=== PATIENT | male | born 1960 | race Caucasian/White ===

== ENCOUNTER 2016-10-30 12:57 | Emergency (ER) | payer MEDICAID ==
[~2016-10-30] VITALS: Ht 188 cm; Wt 90.9 kg
[~2016-10-30 12:57] MED LIST: CEPH-368 PO; ENAL20TA68 PO; HYDR25TA6 PO
[2016-10-30] MEDS ORDERED: DILTIAZEM 5 MG/ML, 5ML ONE ×2 (13:15→14:05)
[2016-10-30 13:24] LABS: HEMOGLOBIN 18.1 g/dL (13.7-18.0)
[2016-10-30] MEDS ORDERED: SODIUM CHLORIDE 0.9% 1,000ML IVBOLUS ONE (13:30)
[2016-10-30] MEDS ORDERED: SODIUM CHLORIDE FLUSH 10ML SYR IVF ONE (13:30)
[2016-10-30] MEDS ORDERED: DILTIAZEM 5 MG/ML, 5ML IV ONE (13:30)
[2016-10-30 13:37] LABS: ASPARTATE AMINO TRANSFERASE 29 U/L (15-37); BLOOD UREA NITROGEN 23 mg/dL (7-18)
[2016-10-30 13:43] LABS: IS PT STATUS REG ER OR PRE ER? YES
[2016-10-30] MEDS ORDERED: SODIUM CHLORIDE 0.9%, 500ML IVBOLUS ONE (14:00)
[2016-10-30] MEDS ORDERED: DILTIAZEM 5 MG/ML, 5ML IVPush ONE (14:00)
[2016-10-30] MEDS ORDERED: ENOXAPARIN 100 MG/ML SQ ONE (14:00)
[2016-10-30] MEDS ORDERED: DILTIAZEM 125 MG in SODIUM CHLORIDE 0.9% 100 ML IV PRN (14:00)
[2016-10-30 15:16] VITALS: BP 109/64
== END 2016-10-30 15:38 | disposition home or self-care (01) ==
LOC: ED 13:52 → EDIP 13:53 → UNDOADMIN 13:53 → ED 14:24
DX: I48.91 Unspecified atrial fibrillation (principal); I10 Essential (primary) hypertension; D68.59 Other primary thrombophilia
CPT/HCPCS: 36415; 71010; 80053; 83880; 84484; 85025; 85610; 85730; 93005; 96372; 96374; 99291; J1650; J7030; J7040

== ENCOUNTER 2017-05-08 08:59 | Inpatient (IN) | payer MEDICAID, OTHER ==
[~2017-05-08] VITALS: Ht 188 cm; Wt 90.0 kg
[2017-05-08] MEDS ORDERED: LISI-167 PO (09:42)
[2017-05-08] MEDS ORDERED: SODIUM CHLORIDE 0.9% 1,000ML IVBOLUS ONE (10:00)
[2017-05-08] MEDS ORDERED: SODIUM CHLORIDE FLUSH 10ML SYR IVF ONE (10:00)
[2017-05-08 10:22] LABS: ASPARTATE AMINO TRANSFERASE 33 U/L (15-37); BLOOD UREA NITROGEN 19 mg/dL (7-18)
[2017-05-08 10:26] LABS: IS PT STATUS REG ER OR PRE ER? YES
[2017-05-08 10:32] LABS: HEMATOCRIT 49.7 % (39.2-51.8); HEMOGLOBIN 17.5 g/dL (13.7-18.0); WHITE BLOOD COUNT 5.8 x10^3/uL (3.4-10)
[2017-05-08] MEDS ORDERED: OMNIPAQUE 350 MG/ML, 100ML BOTTLE ONE (11:19)
[2017-05-08 11:26] LABS: DAU SCREEN DISCLAIMER
[2017-05-08] MEDS ORDERED: ASPIRIN 325 MG TABLET PO ONE (13:00)
[2017-05-08] MEDS ORDERED: ACETAMINOPHEN 325 MG TABLET PO PRN (13:30)
[2017-05-08] MEDS ORDERED: LABETALOL 5MG/ML, 20ML IVPush PRN (13:30)
[2017-05-08 14:00] VITALS: BP 144/90
[2017-05-08 20:00] VITALS: BP 147/87
[2017-05-08] MEDS: ATORVASTATIN 80 MG TABLET PO SCH (20:12)
[2017-05-09 02:00] VITALS: BP 174/100
[2017-05-09 05:53] LABS: HEMATOCRIT 47.2 % (39.2-51.8); HEMOGLOBIN 16.6 g/dL (13.7-18.0); WHITE BLOOD COUNT 6.1 x10^3/uL (3.4-10)
[2017-05-09] MEDS ORDERED: ASPIRIN 325 MG TABLET EC PO SCH (06:00)
[2017-05-09 06:41] LABS: BLOOD UREA NITROGEN 18 mg/dL (7-18)
[2017-05-09 07:32] VITALS: BP 166/95
[2017-05-09] MEDS ORDERED: GADOBUTROL 10 MMOL/10 ML PFS ONE (10:14)
[2017-05-09] MEDS: HEPARIN 5,000 UNITS/ML, 1ML SQ SCH ×2 (11:54→20:13)
[2017-05-09 15:24] VITALS: BP 148/81
[2017-05-09] MEDS ORDERED: ASPIRIN 81 MG TABLET EC PO ONE (16:00)
[2017-05-09 19:24] VITALS: BP 163/93
[2017-05-09] MEDS: ATORVASTATIN 80 MG TABLET PO SCH (20:13)
[2017-05-10 02:14] VITALS: BP 164/94
[2017-05-10] MEDS: HEPARIN 5,000 UNITS/ML, 1ML SQ SCH ×3 (03:59→20:28)
[2017-05-10] MEDS: ASPIRIN 81 MG TABLET EC PO SCH (06:08)
[2017-05-10 06:41] LABS: BLOOD UREA NITROGEN 18 mg/dL (7-18)
[2017-05-10 07:11] VITALS: BP 187/114
[2017-05-10] MEDS: LISINOPRIL 10 MG TABLET PO SCH (09:35)
[2017-05-10 11:13] VITALS: BP 162/90
[2017-05-10 13:24] VITALS: BP 118/72
[2017-05-10 20:21] VITALS: BP 166/90
[2017-05-10] MEDS: ATORVASTATIN 80 MG TABLET PO SCH (20:28)
[2017-05-11 01:36] VITALS: BP 185/101
[2017-05-11] MEDS ORDERED: hydrALAzine 20 MG/ML, 1ML IV PRN (03:30)
[2017-05-11 04:45] VITALS: BP 173/114
[2017-05-11] MEDS: HEPARIN 5,000 UNITS/ML, 1ML SQ SCH ×2 (04:49→12:30)
[2017-05-11] MEDS: ASPIRIN 81 MG TABLET EC PO SCH (04:50)
[2017-05-11 06:31] LABS: BLOOD UREA NITROGEN 15 mg/dL (7-18)
[2017-05-11 08:22] VITALS: BP 145/84
[2017-05-11 08:23] VITALS: BP 176/112
[2017-05-11] MEDS: LISINOPRIL 10 MG TABLET PO SCH (08:30)
[2017-05-11 10:48] VITALS: BP 135/83
[2017-05-11] MEDS ORDERED: ASPI-621 PO (12:19)
[2017-05-11] MEDS ORDERED: LISI-167 PO (12:19)
[2017-05-11] MEDS ORDERED: ATOR-2 PO (12:19)
[2017-05-11] MEDS ORDERED: METO25TA35 PO (12:19)
== END 2017-05-11 14:20 | disposition home or self-care (01) | DRG 948 ==
LOC: ED 11:19 → EDIP 12:16 → 4EST 13:46 → DCLOUNGE 05-11 14:00
PROVIDERS: ADMIT Hospitalist; ATTEND Family Medicine
DX: R53.1 Weakness (principal); G93.89 Other specified disorders of brain; D75.89 Other specified diseases of blood and blood-forming organs; E78.5 Hyperlipidemia, unspecified; I10 Essential (primary) hypertension; R71.8 Other abnormality of red blood cells; F17.210 Nicotine dependence, cigarettes, uncomplicated; F12.90 Cannabis use, unspecified, uncomplicated; F10.10 Alcohol abuse, uncomplicated; Z71.41 Alcohol abuse counseling and surveillance of alcoholic; Z79.82 Long term (current) use of aspirin; Z79.899 Other long term (current) drug therapy; Z87.828 Personal history of other (healed) physical injury and trauma; Z86.73 Personal history of transient ischemic attack (TIA), and cerebral infarction without residual deficits
CPT/HCPCS: 36415; 70450; 70496; 70498; 70553; 71010; 80048; 80053; 80061; 80307; 81003; 82607; 82746; 82962; 83036; 83735; 84443; 84484; 85025; 85610; 85730; 93005; 93306; A9585; J1644; Q9967; G0479; J0360; J7030

== ENCOUNTER 2017-10-17 15:47 | Inpatient (IN) | payer MEDICAID, OTHER ==
[~2017-10-17] VITALS: Ht 188 cm; Wt 80.7 kg
[~2017-10-17 15:47] MED LIST changes: +ASPI-621 PO; +ATOR-2 PO; +LISI-167 PO; +METO25TA35 PO
[2017-10-17 16:28] LABS: BASOPHILS # (AUTO) 0.03 x10^3/uL (0-0.1); BASOPHILS % (AUTO) 0 % (0-1); EOSINOPHILS # (AUTO) 0.04 x10^3/uL (0-0.4); EOSINOPHILS % (AUTO) 1 % (1-7); LYMPHOCYTES # (AUTO) 0.98 x10^3/uL (1-3.4); LYMPHOCYTES % (AUTO) 12 % (22-44); MD NO; MEAN CORPUSCULAR HEMOGLOBIN 34.4 pg (27.5-34.5); MEAN CORPUSCULAR VOLUME 98.5 fL (81-97); MEAN PLATELET VOLUME 7.6 fL (7.4-10.4); MONOCYTES # (AUTO) 0.89 x10^3/uL (0.2-0.8); MONOCYTES % (AUTO) 11 % (2-9); NEUTROPHILS # (AUTO) 6.33 x10^3/uL (1.8-6.8); NEUTROPHILS % (AUTO) 77 % (42-75); PLATELET COUNT 226 x10^3/uL (130-400); RED BLOOD COUNT 4.24 x10^6/uL (4.38-5.82); RED CELL DISTRIBUTION WIDTH 12.4 % (9.4-14.8)
[2017-10-17 16:39] LABS: ALBUMIN 3.3 g/dL (3.4-5.0); ANION GAP 4 mmol/L (5-15); CALCIUM 8.6 mg/dL (8.5-10.1); CHLORIDE 99 mmol/L (98-107)
[2017-10-17 16:40] LABS: CREATININE 1.04 mg/dL (0.7-1.3)
[2017-10-17] MEDS ORDERED: SODIUM CHLORIDE 0.9% 1,000 ML IV ONE (18:08)
[2017-10-17] MEDS ORDERED: AMPICILLIN/SULBACTAM 3 GM in SODIUM CHLORIDE 0.9% 100 ML IV ONE (18:30)
[2017-10-17] MEDS ORDERED: SODIUM CHLORIDE FLUSH 10ML SYR IVF ONE (18:30)
[2017-10-17] MEDS ORDERED: SODIUM CHLORIDE FLUSH 10ML SYR IVF PRN (19:00)
[2017-10-17 19:10] LABS: HEMOGLOBIN A1C 4.9 % (4.2-6.3)
[2017-10-17] MEDS ORDERED: morphine SULFATE 10 MG/ML, 1ML IVPush PRN (20:00)
[2017-10-17] MEDS ORDERED: VANCOMYCIN PER PHARMACY MC PRN (20:00)
[2017-10-17] MEDS ORDERED: hydrALAzine 20 MG/ML, 1ML IVPush PRN (20:00)
[2017-10-17] MEDS ORDERED: VANCOMYCIN PMX 1GM/200ML 200 ML IV ONE (20:00)
[2017-10-17] MEDS ORDERED: ENALAPRILAT 1.25 MG/ML, 2ML IVPush PRN (20:00)
[2017-10-17] MEDS ORDERED: BISACODYL 10 MG SUPP PR PRN (20:00)
[2017-10-17] MEDS ORDERED: POLYETHYLENE GLYCOL 17 GM PACKET PO PRN (20:00)
[2017-10-17] MEDS ORDERED: ONDANSETRON 2MG/ML, 2ML IVPush PRN (20:00)
[2017-10-17] MEDS ORDERED: POTASSIUM CHLORIDE 20 MEQ TAB.ER.PRT PO ONE (20:00)
[2017-10-17 20:30] LABS: HCT (SEDRATE) 38.7 % (39.2-51.8)
[2017-10-17 20:45] LABS: C-REACTIVE PROTEIN, QUANT 0.56 mg/dL (0.02-0.49); FREE T4 (FREE THYROXINE) 1.21 ng/dL (0.76-1.46); THYROID STIMULATING HORMONE 0.506 mIU/L (0.358-3.740)
[2017-10-17 20:59] VITALS: BP 154/83
[2017-10-17 21:01] LABS: HEMOGLOBIN A1C 4.8 % (4.2-6.3)
[2017-10-17] MEDS ORDERED: PHARMACOKINETIC MONITORING MC PRN (22:00)
[2017-10-17] MEDS ORDERED: PHARMACOKINETIC CONSULTATION MC ONE (22:00)
[2017-10-17 22:19] LABS: MICROSCOPIC NOT IND
[2017-10-17 22:23] VITALS: BP 158/83
[2017-10-17 22:26] LABS: CULTURE INDICATED? NO
[2017-10-17] MEDS: NICOTINE 7 MG/24 HR PATCH.TD24 TD SCH (22:27)
[2017-10-17] MEDS: ATORVASTATIN 80 MG TABLET PO SCH (22:27)
[2017-10-17] MEDS: METOPROLOL TARTRATE 25 MG TABLET PO SCH (22:28)
[2017-10-17] MEDS: SODIUM CHLORIDE 0.9% 1,000 ML IV SCH (22:29)
[2017-10-17] MEDS: HEPARIN 5,000 UNITS/ML, 1ML SQ SCH (22:29)
[2017-10-17] MEDS: VANCOMYCIN 1,600 MG in SODIUM CHLORIDE 0.9% 250 ML IV SCH (22:29)
[2017-10-17] MEDS: LISINOPRIL 10 MG TABLET PO SCH (22:29)
[2017-10-18] MEDS: AMPICILLIN/SULBACTAM 3 GM in SODIUM CHLORIDE 0.9% 100 ML IV SCH ×4 (00:24→21:06)
[2017-10-18 02:08] VITALS: BP 108/70
[2017-10-18] MEDS: ACETAMINOPHEN 325 MG TABLET PO PRN ×2 (02:10→10:18)
[2017-10-18] MEDS: OXYcodone IR 5MG TABLET PO PRN ×2 (02:22→21:07)
[2017-10-18 02:25] VITALS: BP 157/70
[2017-10-18 05:31] LABS: CALCIUM 7.8 mg/dL (8.5-10.1); CHLORIDE 103 mmol/L (98-107)
[2017-10-18 05:37] LABS: ALANINE AMINOTRANSFERASE 46 U/L (12-78); ALBUMIN 2.5 g/dL (3.4-5.0); ALKALINE PHOSPHATASE 60 U/L (45-117); ANION GAP 8 mmol/L (5-15); BASOPHILS # (AUTO) 0.02 x10^3/uL (0-0.1); BASOPHILS % (AUTO) 0 % (0-1); BILIRUBIN,TOTAL 1.5 mg/dL (0.2-1.0); CHOLESTEROL, TOTAL 53 mg/dL (140-239); EOSINOPHILS # (AUTO) 0.02 x10^3/uL (0-0.4); EOSINOPHILS % (AUTO) 0 % (1-7); HDL CHOLESTEROL (DIRECT) 24 mg/dL (40-60); LYMPHOCYTES # (AUTO) 0.89 x10^3/uL (1-3.4); LYMPHOCYTES % (AUTO) 11 % (22-44); MD NO; MEAN PLATELET VOLUME 7.7 fL (7.4-10.4); MONOCYTES # (AUTO) 0.76 x10^3/uL (0.2-0.8); MONOCYTES % (AUTO) 9 % (2-9); NEUTROPHILS # (AUTO) 6.61 x10^3/uL (1.8-6.8); NEUTROPHILS % (AUTO) 80 % (42-75); PLATELET COUNT 182 x10^3/uL (130-400); RED BLOOD COUNT 3.59 x10^6/uL (4.38-5.82); RED CELL DISTRIBUTION WIDTH 12.2 % (9.4-14.8); TOTAL PROTEIN 5.9 g/dL (6.4-8.2); TRIGLYCERIDES 79 mg/dL (50-200); VLDL CHOLESTEROL 16 mg/dL (0-25)
[2017-10-18 05:38] LABS: CHOL/HDL RATIO 2.2; HDL CHOL % 45 % (26-37); LDL CHOLESTEROL,CALCULATED 13 mg/dL (54-169); LDL/HDL RATIO 0.5 (0.5-3.0)
[2017-10-18] MEDS: SODIUM CHLORIDE 0.9% 1,000 ML IV SCH (06:35)
[2017-10-18] MEDS: HEPARIN 5,000 UNITS/ML, 1ML SQ SCH ×3 (06:35→21:08)
[2017-10-18 07:22] VITALS: BP 114/72
[2017-10-18] MEDS: ASPIRIN 81 MG TABLET EC PO SCH (08:00)
[2017-10-18] MEDS: SENNA/DOCUSATE TABLET PO SCH (09:00)
[2017-10-18] MEDS: LISINOPRIL 10 MG TABLET PO SCH ×2 (10:18→21:07)
[2017-10-18] MEDS: METOPROLOL TARTRATE 25 MG TABLET PO SCH ×2 (10:18→21:07)
[2017-10-18] MEDS ORDERED: GADOBUTROL 7.5 MMOL/7.5 ML PFS ONE (10:45)
[2017-10-18] MEDS: VANCOMYCIN 1,600 MG in SODIUM CHLORIDE 0.9% 250 ML IV SCH (12:21)
[2017-10-18 13:43] VITALS: BP 98/60
[2017-10-18] MEDS ORDERED: POTASSIUM CHLORIDE 20 MEQ TAB.ER.PRT PO ONE (15:30)
[2017-10-18 19:21] VITALS: BP 135/83
[2017-10-18] MEDS: NICOTINE 7 MG/24 HR PATCH.TD24 TD SCH (21:00)
[2017-10-18] MEDS: ATORVASTATIN 80 MG TABLET PO SCH (21:07)
[2017-10-19] MEDS: VANCOMYCIN 1,600 MG in SODIUM CHLORIDE 0.9% 250 ML IV SCH ×2 (00:44→12:28)
[2017-10-19 03:15] VITALS: BP 163/92
[2017-10-19] MEDS: AMPICILLIN/SULBACTAM 3 GM in SODIUM CHLORIDE 0.9% 100 ML IV SCH ×4 (03:22→20:56)
[2017-10-19] MEDS: HEPARIN 5,000 UNITS/ML, 1ML SQ SCH (04:46)
[2017-10-19 06:15] LABS: CHLORIDE 105 mmol/L (98-107)
[2017-10-19 06:21] LABS: ANION GAP 5 mmol/L (5-15); CALCIUM 7.7 mg/dL (8.5-10.1)
[2017-10-19 06:49] VITALS: BP 146/80
[2017-10-19] MEDS: SENNA/DOCUSATE TABLET PO SCH (09:00)
[2017-10-19] MEDS: ASPIRIN 81 MG TABLET EC PO SCH (09:01)
[2017-10-19] MEDS: METOPROLOL TARTRATE 25 MG TABLET PO SCH ×2 (09:02→21:00)
[2017-10-19] MEDS: LISINOPRIL 10 MG TABLET PO SCH ×2 (09:03→21:00)
[2017-10-19 15:25] VITALS: BP 115/69
[2017-10-19] MEDS ORDERED: ONDANSETRON 2MG/ML, 2ML IVPush PRN (16:00)
[2017-10-19] MEDS ORDERED: LABETALOL 5MG/ML, 20ML IV PRN (16:00)
[2017-10-19] MEDS ORDERED: OXYcodone 5 MG/5 ML ORAL.SOL UDC PO PRN (16:00)
[2017-10-19] MEDS ORDERED: ACETAMINOPHEN 325 MG TABLET PO PRN (16:00)
[2017-10-19] MEDS ORDERED: PROMETHAZINE 12.5 MG SUPP PR PRN (16:00)
[2017-10-19] MEDS ORDERED: MIDAZOLAM 1 MG/ML, 2ML ONE (16:00)
[2017-10-19] MEDS ORDERED: hydrALAzine 20 MG/ML, 1ML IV PRN (16:00)
[2017-10-19] MEDS ORDERED: MEPERIDINE/PF 25MG/0.5ML IVPush PRN (16:00)
[2017-10-19] MEDS ORDERED: FENTANYL PF 100 MCG/2ML IV PRN (16:00)
[2017-10-19] MEDS ORDERED: morphine SULFATE 10 MG/ML, 1ML IV PRN (16:00)
[2017-10-19] MEDS ORDERED: PROMETHAZINE 25 MG/ML, 1ML IV PRN (16:00)
[2017-10-19] MEDS ORDERED: FENTANYL PF 250 MCG/5ML ONE (16:00)
[2017-10-19] MEDS ORDERED: HYDROmorphone 1 MG/ML, 1ML IV PRN (16:00)
[2017-10-19] MEDS ORDERED: PROPOFOL 10 MG/ML, 20ML ONE (16:01)
[2017-10-19] MEDS ORDERED: PHENYLEPHRINE 10 MG/ML ONE (16:25)
[2017-10-19] MEDS ORDERED: ACETAMINOPHEN 650 MG/20.3 ML UDC ONE (17:19)
[2017-10-19] MEDS ORDERED: OXYcodone 5 MG/5 ML ORAL.SOL UDC ONE (17:19)
[2017-10-19 20:17] VITALS: BP 92/59
[2017-10-19] MEDS: ATORVASTATIN 80 MG TABLET PO SCH (20:55)
[2017-10-19] MEDS: NICOTINE 7 MG/24 HR PATCH.TD24 TD SCH (21:00)
[2017-10-20] MEDS: VANCOMYCIN 1,600 MG in SODIUM CHLORIDE 0.9% 250 ML IV SCH ×2 (00:40→12:40)
[2017-10-20] MEDS: OXYcodone IR 5MG TABLET PO PRN ×2 (00:41→21:16)
[2017-10-20 01:50] VITALS: BP 105/66
[2017-10-20] MEDS: AMPICILLIN/SULBACTAM 3 GM in SODIUM CHLORIDE 0.9% 100 ML IV SCH ×4 (03:35→21:15)
[2017-10-20 08:30] VITALS: BP 129/78
[2017-10-20] MEDS: SENNA/DOCUSATE TABLET PO SCH (09:00)
[2017-10-20] MEDS: LISINOPRIL 10 MG TABLET PO SCH ×2 (09:28→21:16)
[2017-10-20] MEDS: METOPROLOL TARTRATE 25 MG TABLET PO SCH ×2 (09:28→21:16)
[2017-10-20] MEDS: ASPIRIN 81 MG TABLET EC PO SCH (09:29)
[2017-10-20] MEDS: GABAPENTIN 100 MG CAPSULE PO SCH ×3 (12:41→21:16)
[2017-10-20] MEDS: MULTIVITAMINS/MINERALS TABLET PO SCH (12:41)
[2017-10-20 14:45] VITALS: BP 123/62
[2017-10-20] MEDS: NICOTINE 7 MG/24 HR PATCH.TD24 TD SCH (18:12)
[2017-10-20 20:00] VITALS: BP 150/82
[2017-10-20] MEDS: ATORVASTATIN 80 MG TABLET PO SCH (21:16)
[2017-10-21 02:00] VITALS: BP 118/68
[2017-10-21] MEDS: AMPICILLIN/SULBACTAM 3 GM in SODIUM CHLORIDE 0.9% 100 ML IV SCH ×4 (03:20→21:37)
[2017-10-21 05:32] LABS: CHLORIDE 108 mmol/L (98-107)
[2017-10-21 05:33] LABS: BASOPHILS # (AUTO) 0.03 x10^3/uL (0-0.1); BASOPHILS % (AUTO) 1 % (0-1); EOSINOPHILS # (AUTO) 0.16 x10^3/uL (0-0.4); EOSINOPHILS % (AUTO) 3 % (1-7); LYMPHOCYTES # (AUTO) 1.55 x10^3/uL (1-3.4); LYMPHOCYTES % (AUTO) 31 % (22-44); MD NO; MEAN CORPUSCULAR HEMOGLOBIN 34.4 pg (27.5-34.5); MEAN CORPUSCULAR HGB CONC 34.9 g/dL (33.2-36.2); MEAN CORPUSCULAR VOLUME 98.5 fL (81-97); MEAN PLATELET VOLUME 7.5 fL (7.4-10.4); MONOCYTES # (AUTO) 0.49 x10^3/uL (0.2-0.8); MONOCYTES % (AUTO) 10 % (2-9); NEUTROPHILS # (AUTO) 2.85 x10^3/uL (1.8-6.8); NEUTROPHILS % (AUTO) 56 % (42-75); PLATELET COUNT 229 x10^3/uL (130-400); RED BLOOD COUNT 3.59 x10^6/uL (4.38-5.82); RED CELL DISTRIBUTION WIDTH 12.5 % (9.4-14.8)
[2017-10-21 05:41] LABS: ALANINE AMINOTRANSFERASE 62 U/L (12-78); ALBUMIN 2.5 g/dL (3.4-5.0); ALKALINE PHOSPHATASE 80 U/L (45-117); ANION GAP 6 mmol/L (5-15); BILIRUBIN,TOTAL 0.8 mg/dL (0.2-1.0); CALCIUM 7.9 mg/dL (8.5-10.1); CREATININE 0.73 mg/dL (0.7-1.3); TOTAL PROTEIN 6.5 g/dL (6.4-8.2)
[2017-10-21 08:30] VITALS: BP 134/75
[2017-10-21] MEDS: GABAPENTIN 100 MG CAPSULE PO SCH ×3 (09:01→21:38)
[2017-10-21] MEDS: MULTIVITAMINS/MINERALS TABLET PO SCH (09:02)
[2017-10-21] MEDS: ASPIRIN 81 MG TABLET EC PO SCH (09:02)
[2017-10-21] MEDS: METOPROLOL TARTRATE 25 MG TABLET PO SCH ×2 (09:02→21:38)
[2017-10-21] MEDS: SENNA/DOCUSATE TABLET PO SCH (09:05)
[2017-10-21] MEDS: LISINOPRIL 10 MG TABLET PO SCH ×2 (09:05→21:38)
[2017-10-21] MEDS: VANCOMYCIN 1,600 MG in SODIUM CHLORIDE 0.9% 250 ML IV SCH ×2 (12:52)
[2017-10-21 14:30] VITALS: BP 128/66
[2017-10-21 19:09] VITALS: BP 117/68
[2017-10-21] MEDS ORDERED: OXYcodone IR 5MG TABLET PO PRN (20:00)
[2017-10-21] MEDS: ATORVASTATIN 80 MG TABLET PO SCH (21:37)
[2017-10-21] MEDS: NICOTINE 7 MG/24 HR PATCH.TD24 TD SCH (21:37)
[2017-10-22] MEDS ORDERED: VANCOMYCIN 1,800 MG in SODIUM CHLORIDE 0.9% 250 ML IV SCH (01:00)
[2017-10-22 02:19] VITALS: BP 112/63
[2017-10-22] MEDS: AMPICILLIN/SULBACTAM 3 GM in SODIUM CHLORIDE 0.9% 100 ML IV SCH ×4 (03:08→20:48)
[2017-10-22 08:29] VITALS: BP 122/78
[2017-10-22] MEDS: LISINOPRIL 10 MG TABLET PO SCH ×2 (09:25→20:48)
[2017-10-22] MEDS: SENNA/DOCUSATE TABLET PO SCH (09:26)
[2017-10-22] MEDS: MULTIVITAMINS/MINERALS TABLET PO SCH (09:26)
[2017-10-22] MEDS: GABAPENTIN 100 MG CAPSULE PO SCH ×3 (09:26→20:48)
[2017-10-22] MEDS: METOPROLOL TARTRATE 25 MG TABLET PO SCH ×2 (09:26→20:48)
[2017-10-22] MEDS: ASPIRIN 81 MG TABLET EC PO SCH (09:26)
[2017-10-22 14:12] VITALS: BP 112/68
[2017-10-22] MEDS ORDERED: OXYcodone IR 5MG TABLET PO PRN (14:30)
[2017-10-22 16:42] LABS: THYROID STIMULATING HORMONE 0.932 mIU/L (0.358-3.740)
[2017-10-22 18:58] VITALS: BP 120/70
[2017-10-22] MEDS: NICOTINE 7 MG/24 HR PATCH.TD24 TD SCH (20:46)
[2017-10-22] MEDS: ATORVASTATIN 80 MG TABLET PO SCH (20:48)
[2017-10-23 01:03] VITALS: BP 108/67
[2017-10-23] MEDS: AMPICILLIN/SULBACTAM 3 GM in SODIUM CHLORIDE 0.9% 100 ML IV SCH ×4 (02:58→21:10)
[2017-10-23 05:06] LABS: BASOPHILS # (AUTO) 0.04 x10^3/uL (0-0.1); BASOPHILS % (AUTO) 1 % (0-1); EOSINOPHILS # (AUTO) 0.16 x10^3/uL (0-0.4); EOSINOPHILS % (AUTO) 2 % (1-7); LYMPHOCYTES # (AUTO) 1.78 x10^3/uL (1-3.4); LYMPHOCYTES % (AUTO) 25 % (22-44); MD NO; MEAN CORPUSCULAR HGB CONC 34.5 g/dL (33.2-36.2); MEAN CORPUSCULAR VOLUME 98.7 fL (81-97); MEAN PLATELET VOLUME 7.3 fL (7.4-10.4); MONOCYTES # (AUTO) 0.64 x10^3/uL (0.2-0.8); MONOCYTES % (AUTO) 9 % (2-9); NEUTROPHILS # (AUTO) 4.51 x10^3/uL (1.8-6.8); NEUTROPHILS % (AUTO) 63 % (42-75); PLATELET COUNT 254 x10^3/uL (130-400); RED BLOOD COUNT 3.63 x10^6/uL (4.38-5.82); RED CELL DISTRIBUTION WIDTH 12.6 % (9.4-14.8)
[2017-10-23 05:13] LABS: ALBUMIN 2.6 g/dL (3.4-5.0); ANION GAP 4 mmol/L (5-15); CALCIUM 7.9 mg/dL (8.5-10.1); CHLORIDE 109 mmol/L (98-107)
[2017-10-23 05:17] LABS: CHOL/HDL RATIO 2.5; CHOLESTEROL, TOTAL 63 mg/dL (140-239); CREATININE 0.79 mg/dL (0.7-1.3); HDL CHOL % 40 % (26-37); HDL CHOLESTEROL (DIRECT) 25 mg/dL (40-60); LDL CHOLESTEROL,CALCULATED 14 mg/dL (54-169); LDL/HDL RATIO 0.6 (0.5-3.0); TRIGLYCERIDES 121 mg/dL (50-200); VLDL CHOLESTEROL 24 mg/dL (0-25)
[2017-10-23 07:59] VITALS: BP 108/72
[2017-10-23] MEDS: ASPIRIN 81 MG TABLET EC PO SCH (08:11)
[2017-10-23] MEDS: LISINOPRIL 10 MG TABLET PO SCH ×2 (08:11→21:11)
[2017-10-23] MEDS: GABAPENTIN 100 MG CAPSULE PO SCH ×3 (08:11→21:10)
[2017-10-23] MEDS: METOPROLOL TARTRATE 25 MG TABLET PO SCH ×2 (08:11→21:11)
[2017-10-23] MEDS: MULTIVITAMINS/MINERALS TABLET PO SCH (08:11)
[2017-10-23] MEDS: SENNA/DOCUSATE TABLET PO SCH (08:17)
[2017-10-23] MEDS: LINEZOLID PMX 600MG/300ML 300 ML IV SCH (11:46)
[2017-10-23 13:21] VITALS: BP 148/77
[2017-10-23 19:19] VITALS: BP 134/82
[2017-10-23] MEDS: ATORVASTATIN 80 MG TABLET PO SCH (21:10)
[2017-10-23] MEDS: NICOTINE 7 MG/24 HR PATCH.TD24 TD SCH (21:11)
[2017-10-24] MEDS: LINEZOLID PMX 600MG/300ML 300 ML IV SCH ×2 (00:16→12:23)
[2017-10-24 01:51] VITALS: BP 120/72
[2017-10-24] MEDS: AMPICILLIN/SULBACTAM 3 GM in SODIUM CHLORIDE 0.9% 100 ML IV SCH ×3 (03:30→15:00)
[2017-10-24 07:10] VITALS: BP 117/74
[2017-10-24 08:00] VITALS: BP 134/81
[2017-10-24] MEDS: SENNA/DOCUSATE TABLET PO SCH (09:00)
[2017-10-24] MEDS: MULTIVITAMINS/MINERALS TABLET PO SCH (09:49)
[2017-10-24] MEDS: METOPROLOL TARTRATE 25 MG TABLET PO SCH ×2 (09:50→20:49)
[2017-10-24] MEDS: ASPIRIN 81 MG TABLET EC PO SCH (09:52)
[2017-10-24] MEDS: GABAPENTIN 100 MG CAPSULE PO SCH ×3 (09:54→20:49)
[2017-10-24] MEDS: LISINOPRIL 10 MG TABLET PO SCH ×2 (09:55→20:48)
[2017-10-24 14:56] VITALS: BP 121/74
[2017-10-24] MEDS ORDERED: ERTAPENEM 1 GM in SODIUM CHLORIDE 0.9% 50 ML IV SCH (17:00)
[2017-10-24] MEDS: ERTAPENEM 1 GM in SODIUM CHLORIDE 0.9% 100 ML IV SCH (17:14)
[2017-10-24 19:42] VITALS: BP 120/73
[2017-10-24] MEDS: ATORVASTATIN 80 MG TABLET PO SCH (20:48)
[2017-10-24] MEDS: NICOTINE 7 MG/24 HR PATCH.TD24 TD SCH (20:49)
[2017-10-25 02:30] VITALS: BP 117/74
[2017-10-25 07:17] VITALS: BP 108/75
[2017-10-25] MEDS: SENNA/DOCUSATE TABLET PO SCH (09:00)
[2017-10-25] MEDS: ASPIRIN 81 MG TABLET EC PO SCH (10:31)
[2017-10-25] MEDS: LISINOPRIL 10 MG TABLET PO SCH ×2 (10:31→19:47)
[2017-10-25] MEDS: METOPROLOL TARTRATE 25 MG TABLET PO SCH ×2 (10:31→19:48)
[2017-10-25] MEDS: GABAPENTIN 100 MG CAPSULE PO SCH ×3 (10:31→19:47)
[2017-10-25] MEDS: MULTIVITAMINS/MINERALS TABLET PO SCH (10:31)
[2017-10-25 13:51] VITALS: BP 114/64
[2017-10-25] MEDS: ATORVASTATIN 80 MG TABLET PO SCH (19:47)
[2017-10-25] MEDS: NICOTINE 7 MG/24 HR PATCH.TD24 TD SCH (19:48)
[2017-10-25] MEDS: ERTAPENEM 1 GM in SODIUM CHLORIDE 0.9% 100 ML IV SCH (19:48)
[2017-10-25 20:39] VITALS: BP 107/69
[2017-10-25] MEDS ORDERED: ONDANSETRON 2MG/ML, 2ML IVPush PRN (22:20)
[2017-10-25] MEDS ORDERED: ONDANSETRON ODT 4 MG PO PRN (22:30)
[2017-10-26 02:31] VITALS: BP 108/71
[2017-10-26 06:05] LABS: BASOPHILS # (AUTO) 0.04 x10^3/uL (0-0.1); BASOPHILS % (AUTO) 1 % (0-1); EOSINOPHILS # (AUTO) 0.14 x10^3/uL (0-0.4); EOSINOPHILS % (AUTO) 2 % (1-7); LYMPHOCYTES # (AUTO) 2.16 x10^3/uL (1-3.4); LYMPHOCYTES % (AUTO) 27 % (22-44); MD NO; MEAN CORPUSCULAR HEMOGLOBIN 34.4 pg (27.5-34.5); MEAN CORPUSCULAR HGB CONC 34.7 g/dL (33.2-36.2); MEAN CORPUSCULAR VOLUME 99.1 fL (81-97); MEAN PLATELET VOLUME 7.5 fL (7.4-10.4); MONOCYTES # (AUTO) 0.65 x10^3/uL (0.2-0.8); MONOCYTES % (AUTO) 8 % (2-9); NEUTROPHILS # (AUTO) 4.99 x10^3/uL (1.8-6.8); NEUTROPHILS % (AUTO) 63 % (42-75); PLATELET COUNT 296 x10^3/uL (130-400); RED BLOOD COUNT 3.93 x10^6/uL (4.38-5.82); RED CELL DISTRIBUTION WIDTH 13.2 % (9.4-14.8)
[2017-10-26 06:13] LABS: ALBUMIN 2.9 g/dL (3.4-5.0); ANION GAP 3 mmol/L (5-15); CALCIUM 8.4 mg/dL (8.5-10.1); CHLORIDE 106 mmol/L (98-107); CREATININE 0.77 mg/dL (0.7-1.3)
[2017-10-26 07:44] VITALS: BP 106/68
[2017-10-26] MEDS: LISINOPRIL 10 MG TABLET PO SCH (08:27)
[2017-10-26] MEDS: GABAPENTIN 100 MG CAPSULE PO SCH ×2 (08:27→16:07)
[2017-10-26] MEDS: MULTIVITAMINS/MINERALS TABLET PO SCH (08:27)
[2017-10-26] MEDS: METOPROLOL TARTRATE 25 MG TABLET PO SCH (08:28)
[2017-10-26] MEDS: SENNA/DOCUSATE TABLET PO SCH (08:28)
[2017-10-26] MEDS: ASPIRIN 81 MG TABLET EC PO SCH (08:47)
[2017-10-26] MEDS ORDERED: MULT-484 PO (13:10)
[2017-10-26] MEDS ORDERED: GABA-826 PO (13:10)
[2017-10-26 13:48] VITALS: BP 112/71
[2017-10-26] MEDS: ERTAPENEM 1 GM in SODIUM CHLORIDE 0.9% 100 ML IV SCH (15:14)
== END 2017-10-26 17:11 | disposition home or self-care (01) | DRG 504 ==
LOC: ED 19:21 → EDIP 19:38 → 3NE 20:57
PROVIDERS: ADMIT Internal Medicine; ATTEND Family Medicine
PROC: 0Y6R0Z1 Detachment at Right 2nd Toe, High, Open Approach (ICD-10-PCS; principal; 2017-10-17)
DX: M86.8X7 Other osteomyelitis, ankle and foot (principal); E44.0 Moderate protein-calorie malnutrition; G62.9 Polyneuropathy, unspecified; L03.115 Cellulitis of right lower limb; L03.116 Cellulitis of left lower limb; L02.611 Cutaneous abscess of right foot; L03.032 Cellulitis of left toe; L97.519 Non-pressure chronic ulcer of other part of right foot with unspecified severity; D75.89 Other specified diseases of blood and blood-forming organs; Z68.23 Body mass index [BMI] 23.0-23.9, adult; E78.5 Hyperlipidemia, unspecified; E87.6 Hypokalemia; F10.10 Alcohol abuse, uncomplicated; F12.90 Cannabis use, unspecified, uncomplicated; F17.200 Nicotine dependence, unspecified, uncomplicated; I10 Essential (primary) hypertension; L03.031 Cellulitis of right toe; M06.4 Inflammatory polyarthropathy; Z89.421 Acquired absence of other right toe(s); Z86.73 Personal history of transient ischemic attack (TIA), and cerebral infarction without residual deficits
CPT/HCPCS: 36415; 36569; 76937; 77001; 80048; 80053; 80061; 80202; 81003; 82040; 82607; 82746; 83036; 83605; 83735; 84100; 84145; 84439; 84443; 85025; 85651; 86140; 87040; 87070; 87075; 87077; 87147; 87181; 87186; 87205; 88305; 88311; 93922; 96365; A9585; J0295; J1335; J1644; J2020; J2250; J2704; J3010; J3370; C1751; J2370; J7030; J7050

== ENCOUNTER 2018-05-24 08:33 | Emergency (ER) | payer MEDICAID ==
[~2018-05-24] VITALS: Ht 188 cm; Wt 98.3 kg
[~2018-05-24 08:33] MED LIST changes: +GABA-826 PO; +MULT-484 PO
[2018-05-24 08:38] VITALS: BP 152/91
== END 2018-05-24 09:33 | disposition home or self-care (01) ==
LOC: ED 09:00
DX: S91.332A Puncture wound without foreign body, left foot, initial encounter (principal); G62.9 Polyneuropathy, unspecified; F17.200 Nicotine dependence, unspecified, uncomplicated; X58.XXXA Exposure to other specified factors, initial encounter; Y93.89 Activity, other specified; Y92.69 Other specified industrial and construction area as the place of occurrence of the external cause; Y99.8 Other external cause status
CPT/HCPCS: 99283

== ENCOUNTER 2018-06-03 12:00 | Inpatient (IN) | payer MEDICAID ==
[~2018-06-03] VITALS: Ht 188 cm; Wt 94.8 kg
[2018-06-03] MEDS ORDERED: AMPICILLIN/SULBACTAM 3 GM in SODIUM CHLORIDE 0.9% 100 ML IVPB ONE (13:00)
[2018-06-03] MEDS ORDERED: SODIUM CHLORIDE FLUSH 10ML SYR IVF ONE (13:00)
[2018-06-03 13:32] LABS: BASOPHILS # (AUTO) 0.03 x10^3/uL (0-0.1); BASOPHILS % (AUTO) 0 % (0-1); EOSINOPHILS # (AUTO) 0.01 x10^3/uL (0-0.4); EOSINOPHILS % (AUTO) 0 % (1-7); LYMPHOCYTES # (AUTO) 1.11 x10^3/uL (1-3.4); LYMPHOCYTES % (AUTO) 10 % (22-44); MD NO; MEAN CORPUSCULAR HEMOGLOBIN 34.2 pg (27.5-34.5); MEAN CORPUSCULAR HGB CONC 35.1 g/dL (33.2-36.2); MEAN CORPUSCULAR VOLUME 97.4 fL (81-97); MEAN PLATELET VOLUME 7.9 fL (7.4-10.4); MONOCYTES # (AUTO) 0.65 x10^3/uL (0.2-0.8); MONOCYTES % (AUTO) 6 % (2-9); NEUTROPHILS # (AUTO) 9.03 x10^3/uL (1.8-6.8); NEUTROPHILS % (AUTO) 83 % (42-75); PLATELET COUNT 226 x10^3/uL (130-400); RED BLOOD COUNT 4.97 x10^6/uL (4.38-5.82); RED CELL DISTRIBUTION WIDTH 12.8 % (9.4-14.8)
[2018-06-03 13:39] LABS: PROTHROMBIN TIME 10.4 Seconds (9.6-11.5)
[2018-06-03 13:40] LABS: ALBUMIN 3.1 g/dL (3.4-5.0); ANION GAP 9 mmol/L (5-15); CALCIUM 8.5 mg/dL (8.5-10.1); CHLORIDE 106 mmol/L (98-107); CREATININE 1.19 mg/dL (0.7-1.3)
[2018-06-03] MEDS ORDERED: SODIUM CHLORIDE FLUSH 10ML SYR IVF PRN (14:30)
[2018-06-03] MEDS ORDERED: morphine SULFATE 10 MG/ML, 1ML IVPush PRN (15:00)
[2018-06-03] MEDS: NICOTINE 21 MG/24 HR PATCH.TD24 TD SCH (15:00)
[2018-06-03] MEDS ORDERED: ACETAMINOPHEN 325 MG TABLET PO PRN (15:00)
[2018-06-03] MEDS ORDERED: ONDANSETRON 2MG/ML, 2ML IVPush PRN (15:00)
[2018-06-03 16:10] VITALS: BP 113/68
[2018-06-03] MEDS ORDERED: GADOBUTROL 10 MMOL/10 ML PFS ONE (16:24)
[2018-06-03 16:26] LABS: HEMOGLOBIN A1C 5.5 % (4.2-6.3)
[2018-06-03] MEDS: ENOXAPARIN 40 MG/0.4 ML SQ SCH ×2 (17:26→19:09)
[2018-06-03] MEDS: PIPERACILLIN/TAZO/PMX 3.375GM 50 ML IV SCH ×2 (17:26→22:40)
[2018-06-03 19:10] VITALS: BP 117/76
[2018-06-03] MEDS: METOPROLOL TARTRATE 25 MG TABLET PO SCH (20:37)
[2018-06-03] MEDS: LISINOPRIL 10 MG TABLET PO SCH (20:37)
[2018-06-03] MEDS: ATORVASTATIN 80 MG TABLET PO SCH (20:37)
[2018-06-03] MEDS: TEMAZEPAM 15 MG CAPSULE PO PRN (20:43)
[2018-06-04 01:51] VITALS: BP 109/65
[2018-06-04] MEDS: PIPERACILLIN/TAZO/PMX 3.375GM 50 ML IV SCH ×4 (04:24→23:16)
[2018-06-04 04:56] LABS: ALBUMIN 2.5 g/dL (3.4-5.0); ANION GAP 7 mmol/L (5-15); CALCIUM 7.6 mg/dL (8.5-10.1); CHLORIDE 106 mmol/L (98-107)
[2018-06-04 04:59] LABS: ALANINE AMINOTRANSFERASE 37 U/L (12-78); ALKALINE PHOSPHATASE 64 U/L (45-117); CREATININE 0.77 mg/dL (0.7-1.3); TOTAL PROTEIN 6.4 g/dL (6.4-8.2)
[2018-06-04 06:35] VITALS: BP 137/78
[2018-06-04] MEDS: METOPROLOL TARTRATE 25 MG TABLET PO SCH ×2 (09:20→20:03)
[2018-06-04] MEDS: ASPIRIN 81 MG TABLET EC PO SCH (09:20)
[2018-06-04] MEDS: LISINOPRIL 10 MG TABLET PO SCH ×2 (09:20→20:03)
[2018-06-04] MEDS: NICOTINE 21 MG/24 HR PATCH.TD24 TD SCH (11:11)
[2018-06-04 12:15] VITALS: BP 117/71
[2018-06-04 19:27] VITALS: BP 113/66
[2018-06-04] MEDS: ENOXAPARIN 40 MG/0.4 ML SQ SCH (20:02)
[2018-06-04] MEDS: ATORVASTATIN 80 MG TABLET PO SCH (20:03)
[2018-06-05 02:41] VITALS: BP 143/86
[2018-06-05 04:52] LABS: HCT (SEDRATE) 39.5 % (39.2-51.8)
[2018-06-05] MEDS: PIPERACILLIN/TAZO/PMX 3.375GM 50 ML IV SCH ×3 (05:05→17:26)
[2018-06-05 07:15] VITALS: BP 141/87
[2018-06-05] MEDS: METOPROLOL TARTRATE 25 MG TABLET PO SCH ×2 (09:15→19:56)
[2018-06-05] MEDS: ASPIRIN 81 MG TABLET EC PO SCH (09:15)
[2018-06-05] MEDS: LISINOPRIL 10 MG TABLET PO SCH ×2 (09:15→19:56)
[2018-06-05 13:08] VITALS: BP 122/80
[2018-06-05] MEDS: NICOTINE 21 MG/24 HR PATCH.TD24 TD SCH (15:00)
[2018-06-05] MEDS ORDERED: VANCOMYCIN PER PHARMACY MC PRN (18:30)
[2018-06-05 19:07] VITALS: BP 126/81
[2018-06-05] MEDS: ATORVASTATIN 80 MG TABLET PO SCH (19:55)
[2018-06-05] MEDS: ENOXAPARIN 40 MG/0.4 ML SQ SCH (19:56)
[2018-06-05] MEDS ORDERED: PHARMACOKINETIC MONITORING MC PRN (21:00)
[2018-06-05] MEDS ORDERED: PHARMACOKINETIC CONSULTATION MC ONE (21:00)
[2018-06-05] MEDS: VANCOMYCIN 2,000 MG in SODIUM CHLORIDE 0.9% 500 ML IV SCH (21:45)
[2018-06-06] MEDS: PIPERACILLIN/TAZO/PMX 3.375GM 50 ML IV SCH ×4 (00:09→18:13)
[2018-06-06 02:05] VITALS: BP 100/64
[2018-06-06 06:37] VITALS: BP 114/77
[2018-06-06] MEDS: ASPIRIN 81 MG TABLET EC PO SCH (08:52)
[2018-06-06] MEDS: METOPROLOL TARTRATE 25 MG TABLET PO SCH ×2 (08:53→21:46)
[2018-06-06] MEDS: LISINOPRIL 10 MG TABLET PO SCH ×2 (08:53→21:46)
[2018-06-06] MEDS: VANCOMYCIN 2,000 MG in SODIUM CHLORIDE 0.9% 500 ML IV SCH ×2 (10:31→22:33)
[2018-06-06 12:24] VITALS: BP 121/86
[2018-06-06] MEDS: NICOTINE 21 MG/24 HR PATCH.TD24 TD SCH (15:00)
[2018-06-06 20:38] VITALS: BP 109/75
[2018-06-06] MEDS: ENOXAPARIN 40 MG/0.4 ML SQ SCH (21:47)
[2018-06-06] MEDS: ATORVASTATIN 80 MG TABLET PO SCH (21:47)
[2018-06-07 00:08] VITALS: BP 111/60
[2018-06-07] MEDS: PIPERACILLIN/TAZO/PMX 3.375GM 50 ML IV SCH ×4 (03:12→20:38)
[2018-06-07 06:06] LABS: CREATININE 0.82 mg/dL (0.7-1.3)
[2018-06-07 07:00] VITALS: BP 116/82
[2018-06-07] MEDS: METOPROLOL TARTRATE 25 MG TABLET PO SCH ×2 (08:44→20:38)
[2018-06-07] MEDS: ASPIRIN 81 MG TABLET EC PO SCH (08:45)
[2018-06-07] MEDS: LISINOPRIL 10 MG TABLET PO SCH ×2 (08:45→20:39)
[2018-06-07] MEDS: VANCOMYCIN 2,000 MG in SODIUM CHLORIDE 0.9% 500 ML IV SCH ×2 (10:36→22:54)
[2018-06-07 14:00] VITALS: BP 98/55
[2018-06-07] MEDS: NICOTINE 21 MG/24 HR PATCH.TD24 TD SCH (15:00)
[2018-06-07 19:36] VITALS: BP 112/75
[2018-06-07] MEDS: ATORVASTATIN 80 MG TABLET PO SCH (20:38)
[2018-06-07] MEDS: ENOXAPARIN 40 MG/0.4 ML SQ SCH (20:39)
[2018-06-08] MEDS: PIPERACILLIN/TAZO/PMX 3.375GM 50 ML IV SCH ×4 (03:03→21:13)
[2018-06-08 03:20] VITALS: BP 98/60
[2018-06-08 04:56] LABS: BASOPHILS # (AUTO) 0.06 x10^3/uL (0-0.1); BASOPHILS % (AUTO) 1 % (0-1); EOSINOPHILS # (AUTO) 0.24 x10^3/uL (0-0.4); EOSINOPHILS % (AUTO) 4 % (1-7); LYMPHOCYTES # (AUTO) 1.63 x10^3/uL (1-3.4); LYMPHOCYTES % (AUTO) 24 % (22-44); MD NO; MEAN CORPUSCULAR HEMOGLOBIN 33.9 pg (27.5-34.5); MEAN CORPUSCULAR VOLUME 96.8 fL (81-97); MEAN PLATELET VOLUME 7.4 fL (7.4-10.4); MONOCYTES # (AUTO) 0.88 x10^3/uL (0.2-0.8); MONOCYTES % (AUTO) 13 % (2-9); NEUTROPHILS # (AUTO) 3.98 x10^3/uL (1.8-6.8); NEUTROPHILS % (AUTO) 59 % (42-75); PLATELET COUNT 274 x10^3/uL (130-400); RED BLOOD COUNT 4.17 x10^6/uL (4.38-5.82); RED CELL DISTRIBUTION WIDTH 12.5 % (9.4-14.8)
[2018-06-08 07:05] VITALS: BP 116/77
[2018-06-08] MEDS: ASPIRIN 81 MG TABLET EC PO SCH (09:56)
[2018-06-08] MEDS: METOPROLOL TARTRATE 25 MG TABLET PO SCH ×2 (09:56→21:14)
[2018-06-08] MEDS: LISINOPRIL 10 MG TABLET PO SCH ×2 (09:56→21:14)
[2018-06-08] MEDS: VANCOMYCIN 2,000 MG in SODIUM CHLORIDE 0.9% 500 ML IV SCH ×2 (11:19→23:13)
[2018-06-08] MEDS: NICOTINE 21 MG/24 HR PATCH.TD24 TD SCH (15:00)
[2018-06-08 18:25] VITALS: BP 125/81
[2018-06-08] MEDS: TEMAZEPAM 15 MG CAPSULE PO PRN (21:13)
[2018-06-08] MEDS: ATORVASTATIN 80 MG TABLET PO SCH (21:14)
[2018-06-08] MEDS: ENOXAPARIN 40 MG/0.4 ML SQ SCH (21:24)
[2018-06-09 02:20] VITALS: BP 115/71
[2018-06-09] MEDS: PIPERACILLIN/TAZO/PMX 3.375GM 50 ML IV SCH ×4 (03:11→20:23)
[2018-06-09 07:10] VITALS: BP 111/76
[2018-06-09] MEDS: ASPIRIN 81 MG TABLET EC PO SCH (08:17)
[2018-06-09] MEDS: METOPROLOL TARTRATE 25 MG TABLET PO SCH ×2 (08:18→20:24)
[2018-06-09] MEDS: LISINOPRIL 10 MG TABLET PO SCH ×2 (08:54→20:24)
[2018-06-09] MEDS: VANCOMYCIN 2,000 MG in SODIUM CHLORIDE 0.9% 500 ML IV SCH (10:01)
[2018-06-09 13:25] VITALS: BP 111/73
[2018-06-09] MEDS: NICOTINE 21 MG/24 HR PATCH.TD24 TD SCH (15:00)
[2018-06-09 19:04] VITALS: BP 141/77
[2018-06-09] MEDS: ATORVASTATIN 80 MG TABLET PO SCH (20:24)
[2018-06-09] MEDS: ENOXAPARIN 40 MG/0.4 ML SQ SCH (20:24)
[2018-06-10 01:30] VITALS: BP 136/72
[2018-06-10] MEDS: PIPERACILLIN/TAZO/PMX 3.375GM 50 ML IV SCH ×4 (02:41→20:12)
[2018-06-10 04:40] LABS: HCT (SEDRATE) 41.6 % (39.2-51.8)
[2018-06-10 04:54] LABS: BASOPHILS # (AUTO) 0.05 x10^3/uL (0-0.1); BASOPHILS % (AUTO) 1 % (0-1); EOSINOPHILS # (AUTO) 0.26 x10^3/uL (0-0.4); EOSINOPHILS % (AUTO) 4 % (1-7); LYMPHOCYTES # (AUTO) 2.05 x10^3/uL (1-3.4); LYMPHOCYTES % (AUTO) 30 % (22-44); MD NO; MEAN CORPUSCULAR HEMOGLOBIN 33.7 pg (27.5-34.5); MEAN CORPUSCULAR HGB CONC 34.8 g/dL (33.2-36.2); MEAN PLATELET VOLUME 7.5 fL (7.4-10.4); MONOCYTES # (AUTO) 0.77 x10^3/uL (0.2-0.8); MONOCYTES % (AUTO) 11 % (2-9); NEUTROPHILS # (AUTO) 3.68 x10^3/uL (1.8-6.8); NEUTROPHILS % (AUTO) 54 % (42-75); PLATELET COUNT 278 x10^3/uL (130-400); RED BLOOD COUNT 4.25 x10^6/uL (4.38-5.82); RED CELL DISTRIBUTION WIDTH 12.5 % (9.4-14.8)
[2018-06-10 06:42] VITALS: BP 153/88
[2018-06-10] MEDS ORDERED: LIDOCAINE-MPF 1%, 5ML ONE (07:56)
[2018-06-10] MEDS ORDERED: VISIPAQUE 270 MG/ML, 50ML BOTTLE ONE (08:55)
[2018-06-10] MEDS: ASPIRIN 81 MG TABLET EC PO SCH (09:47)
[2018-06-10] MEDS: LISINOPRIL 10 MG TABLET PO SCH ×2 (09:47→20:10)
[2018-06-10] MEDS: METOPROLOL TARTRATE 25 MG TABLET PO SCH ×2 (09:47→20:12)
[2018-06-10 12:08] VITALS: BP 113/74
[2018-06-10] MEDS: NICOTINE 21 MG/24 HR PATCH.TD24 TD SCH (12:40)
[2018-06-10 20:10] VITALS: BP 112/63
[2018-06-10] MEDS: ENOXAPARIN 40 MG/0.4 ML SQ SCH (20:11)
[2018-06-10] MEDS: ATORVASTATIN 80 MG TABLET PO SCH (20:12)
[2018-06-11 01:04] VITALS: BP 136/82
[2018-06-11] MEDS: PIPERACILLIN/TAZO/PMX 3.375GM 50 ML IV SCH ×4 (03:20→19:57)
[2018-06-11 06:58] VITALS: BP 102/66
[2018-06-11] MEDS: LISINOPRIL 10 MG TABLET PO SCH ×2 (08:10→19:57)
[2018-06-11] MEDS: ASPIRIN 81 MG TABLET EC PO SCH (08:10)
[2018-06-11] MEDS: METOPROLOL TARTRATE 25 MG TABLET PO SCH ×2 (08:10→19:57)
[2018-06-11] MEDS ORDERED: ATOR-2 PO (11:29)
[2018-06-11] MEDS ORDERED: PIPE3.373 IV (11:29)
[2018-06-11] MEDS ORDERED: ASPI-621 PO (11:29)
[2018-06-11] MEDS ORDERED: LISI-167 PO (11:29)
[2018-06-11] MEDS ORDERED: NICO-487 TD (11:29)
[2018-06-11 13:25] VITALS: BP 111/74
[2018-06-11] MEDS: NICOTINE 21 MG/24 HR PATCH.TD24 TD SCH (15:00)
[2018-06-11 19:10] VITALS: BP 112/75
[2018-06-11] MEDS: ATORVASTATIN 80 MG TABLET PO SCH (19:57)
[2018-06-11] MEDS: ENOXAPARIN 40 MG/0.4 ML SQ SCH (19:57)
[2018-06-12 01:05] VITALS: BP 108/70
[2018-06-12] MEDS: PIPERACILLIN/TAZO/PMX 3.375GM 50 ML IV SCH ×2 (03:29→10:20)
[2018-06-12 07:30] VITALS: BP 112/75
[2018-06-12] MEDS: LISINOPRIL 10 MG TABLET PO SCH (09:39)
[2018-06-12] MEDS: ASPIRIN 81 MG TABLET EC PO SCH (09:39)
[2018-06-12] MEDS: METOPROLOL TARTRATE 25 MG TABLET PO SCH (09:39)
== END 2018-06-12 13:02 | DRG 872 ==
LOC: ED 14:17 → EDIP 14:20 → 4WST 16:02
PROVIDERS: ADMIT Hospitalist; ATTEND Hospitalist
PROC: 02HV33Z Insertion of Infusion Device into Superior Vena Cava, Percutaneous Approach (ICD-10-PCS; principal; 2018-06-10)
PROC: B5181ZA Fluoroscopy of Superior Vena Cava using Low Osmolar Contrast, Guidance (ICD-10-PCS; 2018-06-10)
PROC: B548ZZA Ultrasonography of Superior Vena Cava, Guidance (ICD-10-PCS; 2018-06-10)
DX: A41.9 Sepsis, unspecified organism (principal); I50.32 Chronic diastolic (congestive) heart failure; M86.8X7 Other osteomyelitis, ankle and foot; E11.42 Type 2 diabetes mellitus with diabetic polyneuropathy; E11.621 Type 2 diabetes mellitus with foot ulcer; E11.65 Type 2 diabetes mellitus with hyperglycemia; E11.69 Type 2 diabetes mellitus with other specified complication; E78.5 Hyperlipidemia, unspecified; F10.10 Alcohol abuse, uncomplicated; F12.90 Cannabis use, unspecified, uncomplicated; F17.210 Nicotine dependence, cigarettes, uncomplicated; I11.0 Hypertensive heart disease with heart failure; L03.032 Cellulitis of left toe; L97.529 Non-pressure chronic ulcer of other part of left foot with unspecified severity; Z66 Do not resuscitate; Z80.42 Family history of malignant neoplasm of prostate; Z82.3 Family history of stroke; Z83.3 Family history of diabetes mellitus; Z86.73 Personal history of transient ischemic attack (TIA), and cerebral infarction without residual deficits; Z89.421 Acquired absence of other right toe(s); Z71.6 Tobacco abuse counseling
CPT/HCPCS: 36415; 36569; 76937; 77001; 80048; 80053; 80202; 82040; 82565; 83036; 83605; 83735; 84100; 84443; 85025; 85610; 85651; 85730; 86140; 87040; 87070; 87077; 87081; 87186; 87205; 96365; 99285; A9585; G0378; J0295; J1650; J2543; J3370; Q9966; C1751; C1769; J7040

== ENCOUNTER 2018-07-30 15:12 | Emergency (ER) | payer MEDICAID ==
[~2018-07-30] VITALS: Ht 188 cm; Wt 99.0 kg
[~2018-07-30 15:12] MED LIST changes: -ASPI-621 PO; +ASPI81TA45 PO; +NICO-487 TD; +PIPE3.373 IV
[2018-07-30 15:14] VITALS: BP 130/90
--- NOTE | 2018-07-30 15:39 | NUR ---
First contact with pt. In May I stepped on a nail, it was infected, I was admitted because the infection was in my bone too. Raghavendra took me for 5 weeks. I was released from [place] to home on the , this morning I woke up and my foot was like this. Yesterday I was getting the chills really bad. It was getting a little red yesterday, and the swelling got worse today. I don't really have pain in my feet, I do have neuropathy. My body is still producing insulin. My blood sugar gets high but it comes back down with out taking anything. I ate a good amount of ice cream last night so my blood sugar may be high today." NADN. No needs requested. Pt laying on gurney with safety measures in place. Pt's left foot has errythema on the top of the foot and across the fifth, fourth, and third toe. Pt has swelling of the fifth, fourth, and third toe. CMS is intact. Pt connected to NIBP and continous pulse ox. Addendum: 07/30/18 at 1545 [facility] Pt has open wound approximately 1 cm long on third toe medial to second toe on left foot. Pt is missing second toe on right foot due to, "I had an infection on that foot too. The skin just tore open and then it got really infected fast."
[2018-07-30 15:46] LABS: BASOPHILS # (AUTO) 0.03 x10^3/uL (0-0.1); BASOPHILS % (AUTO) 0 % (0-1); EOSINOPHILS # (AUTO) 0.05 x10^3/uL (0-0.4); EOSINOPHILS % (AUTO) 1 % (1-7); LYMPHOCYTES # (AUTO) 1.17 x10^3/uL (1-3.4); LYMPHOCYTES % (AUTO) 15 % (22-44); MD NO; MEAN CORPUSCULAR HGB CONC 35.3 g/dL (33.2-36.2); MEAN CORPUSCULAR VOLUME 96.2 fL (81-97); MEAN PLATELET VOLUME 7.3 fL (7.4-10.4); MONOCYTES # (AUTO) 0.84 x10^3/uL (0.2-0.8); MONOCYTES % (AUTO) 11 % (2-9); NEUTROPHILS # (AUTO) 5.76 x10^3/uL (1.8-6.8); NEUTROPHILS % (AUTO) 73 % (42-75); PLATELET COUNT 239 x10^3/uL (130-400); RED BLOOD COUNT 4.67 x10^6/uL (4.38-5.82)
[2018-07-30 15:57] LABS: ANION GAP 6 mmol/L (5-15); CALCIUM 8.7 mg/dL (8.5-10.1); CHLORIDE 105 mmol/L (98-107); CREATININE 0.87 mg/dL (0.7-1.3)
--- NOTE | 2018-07-30 17:20 | NUR ---
Pt ready for d/c but states it is not possible to get abx filled until tomorrow due to monetary issues. Pt given Rx assistance information & order requested to give first dose abx here.
[2018-07-30] MEDS ORDERED: SULFAMETH./TRIMETHOPRIM DS 800MG/160MG TABLET ONE ×2 (17:23→17:27)
[2018-07-30] MEDS ORDERED: CEPHALEXIN 500 MG CAPSULE ONE ×2 (17:23→17:27)
[2018-07-30] MEDS ORDERED: SULFAMETH./TRIMETHOPRIM DS 800MG/160MG TABLET PO ONE (17:30)
[2018-07-30] MEDS ORDERED: CEPHALEXIN 500 MG CAPSULE PO ONE (17:30)
--- NOTE | 2018-07-30 17:30 | NUR ---
Patient given discharge instructions and they have confirmed that they understand the instructions. Patient ambulatory with steady gait.
== END 2018-07-30 17:33 | disposition home or self-care (01) ==
LOC: ED 15:54
DX: S91.332A Puncture wound without foreign body, left foot, initial encounter (principal); L03.116 Cellulitis of left lower limb; W45.0XXA Nail entering through skin, initial encounter; Y93.89 Activity, other specified; Y92.69 Other specified industrial and construction area as the place of occurrence of the external cause; Y99.0 Civilian activity done for income or pay
CPT/HCPCS: 36415; 80048; 85025; 85651; 86140; 87040; 99284

== ENCOUNTER 2019-09-07 10:12 | Inpatient (IN) | payer MEDICAID, OTHER ==
[~2019-09-07] VITALS: Ht 188 cm; Wt 101.5 kg
[2019-09-07] MEDS ORDERED: DILTIAZEM 5 MG/ML, 5ML IVPush ONE ×2 (10:30→11:30)
[2019-09-07] MEDS ORDERED: DILTIAZEM 5 MG/ML, 10ML IVPush ONE (10:30)
--- NOTE | 2019-09-07 10:52 | NUR ---
pt in room changed into hospital gown. Connected to monitors. IV started, medicated per emar. pt in with C/O not being able to breath x4-5 days. denies smoking since shortness of breath started. pt verbalized that he has not taken his blood pressure medication x1 week d/t not having them filled d/t not having PCP. Call light within reach.
--- NOTE | 2019-09-07 10:57 | NUR ---
MD at bedside. Communicated that pt has not taken his BP medications x1 week and HR post medication push. MD ordering additional cardiazem push and start ggt.
[2019-09-07] MEDS ORDERED: DILTIAZEM 125 MG in SODIUM CHLORIDE 0.9% 100 ML IV SCH ×2 (11:30→13:30)
[2019-09-07] MEDS ORDERED: HEPARIN 25,000 UNITS/250ML PMX 250 ML IV PRN (12:00)
[2019-09-07] MEDS ORDERED: HEPARIN 5,000 UNITS/ML, 1ML IV ONE (12:00)
[2019-09-07] MEDS ORDERED: HEPARIN 5,000 UNITS/ML, 1ML IV PRN (12:00)
[2019-09-07 12:03] LABS: BASOPHILS # (AUTO) 0.03 x10^3/uL (0-0.1); BASOPHILS % (AUTO) 1 % (0-1); EOSINOPHILS # (AUTO) 0.04 x10^3/uL (0-0.4); EOSINOPHILS % (AUTO) 1 % (1-7); LYMPHOCYTES # (AUTO) 1.59 x10^3/uL (1-3.4); LYMPHOCYTES % (AUTO) 24 % (22-44); MD NO; MEAN CORPUSCULAR HEMOGLOBIN 33.3 pg (27.5-34.5); MEAN CORPUSCULAR HGB CONC 34.1 g/dL (33.2-36.2); MEAN CORPUSCULAR VOLUME 97.6 fL (81-97); MEAN PLATELET VOLUME 9.4 fL (7.4-10.4); MONOCYTES # (AUTO) 0.58 x10^3/uL (0.2-0.8); MONOCYTES % (AUTO) 9 % (2-9); NEUTROPHILS # (AUTO) 4.35 x10^3/uL (1.8-6.8); NEUTROPHILS % (AUTO) 66 % (42-75); PLATELET COUNT 163 x10^3/uL (130-400); RED CELL DISTRIBUTION WIDTH 13.6 % (9.4-14.8)
--- NOTE | 2019-09-07 12:04 | NUR ---
Lab at bedside. Blood for labs obtained from new IV start. Cardaizem ggt started.
[2019-09-07 12:40] LABS: ALANINE AMINOTRANSFERASE 45 U/L (12-78); ALBUMIN 3.1 g/dL (3.4-5.0); ANION GAP 5 mmol/L (5-15); CALCIUM 8.7 mg/dL (8.5-10.1); CHLORIDE 109 mmol/L (98-107); CREATININE 0.91 mg/dL (0.7-1.3)
[2019-09-07 12:42] LABS: INTERNATIONAL NORMALIZED RATIO 1.07 (0.93-1.1); PROTHROMBIN TIME 11.3 Seconds (9.6-11.5)
--- NOTE | 2019-09-07 12:42 | NUR ---
TASK RN: REPORT GIVEN TO LANI RN, PT READY FOR TRANSPORT TO FLOOR
[2019-09-07 12:44] LABS: ALKALINE PHOSPHATASE 92 U/L (45-117); BILIRUBIN,TOTAL 1.2 mg/dL (0.2-1.0); TOTAL PROTEIN 7.6 g/dL (6.4-8.2); TROPONIN I < 0.015 ng/mL (0.000-0.045)
--- NOTE | 2019-09-07 12:51 | NUR ---
admitting provider at bedside.
[2019-09-07 13:10] VITALS: BP 129/81
[2019-09-07] MEDS ORDERED: ONDANSETRON ODT 4 MG PO PRN (13:30)
[2019-09-07] MEDS ORDERED: ONDANSETRON 2MG/ML, 2ML IVPush PRN (13:30)
[2019-09-07 15:27] LABS: TROPONIN I < 0.015 ng/mL (0.000-0.045)
[2019-09-07] MEDS ORDERED: OMNIPAQUE 350 MG/ML, 100ML BOTTLE ONE (17:18)
[2019-09-07 18:33] LABS: TROPONIN I < 0.015 ng/mL (0.000-0.045)
[2019-09-07 19:03] VITALS: BP 159/101
[2019-09-07] MEDS: METOPROLOL TARTRATE 25 MG TAB PO SCH (19:50)
[2019-09-07] MEDS: LISINOPRIL 10 MG TABLET PO SCH (19:50)
[2019-09-07] MEDS: NICOTINE 21 MG/24 HR PATCH.TD24 TD SCH (19:51)
[2019-09-07 20:40] VITALS: BP 133/88
[2019-09-07] MEDS: HEPARIN 5,000 UNITS/ML, 1ML IV PRN (21:46)
[2019-09-07] MEDS: DILTIAZEM 125 MG in SODIUM CHLORIDE 0.9% 100 ML IVPB SCH (22:27)
[2019-09-07] MEDS ORDERED: MELATONIN 5 MG TABLET PO PRN (22:30)
[2019-09-07 23:57] VITALS: BP 104/73
[2019-09-08 04:01] LABS: BASOPHILS # (AUTO) 0.02 x10^3/uL (0-0.1); BASOPHILS % (AUTO) 0 % (0-1); EOSINOPHILS # (AUTO) 0.06 x10^3/uL (0-0.4); EOSINOPHILS % (AUTO) 1 % (1-7); LYMPHOCYTES # (AUTO) 1.64 x10^3/uL (1-3.4); LYMPHOCYTES % (AUTO) 29 % (22-44); MD NO; MEAN CORPUSCULAR HEMOGLOBIN 32.8 pg (27.5-34.5); MEAN CORPUSCULAR HGB CONC 33.5 g/dL (33.2-36.2); MEAN CORPUSCULAR VOLUME 97.7 fL (81-97); MEAN PLATELET VOLUME 8.8 fL (7.4-10.4); MONOCYTES # (AUTO) 0.59 x10^3/uL (0.2-0.8); MONOCYTES % (AUTO) 10 % (2-9); NEUTROPHILS # (AUTO) 3.38 x10^3/uL (1.8-6.8); NEUTROPHILS % (AUTO) 59 % (42-75); PLATELET COUNT 126 x10^3/uL (130-400); RED BLOOD COUNT 4.22 x10^6/uL (4.38-5.82); RED CELL DISTRIBUTION WIDTH 13.7 % (9.4-14.8)
[2019-09-08 04:12] LABS: ALANINE AMINOTRANSFERASE 40 U/L (12-78); ALBUMIN 2.9 g/dL (3.4-5.0); ANION GAP 4 mmol/L (5-15); CALCIUM 8.5 mg/dL (8.5-10.1); CHLORIDE 106 mmol/L (98-107); CHOLESTEROL, TOTAL 106 mg/dL (140-239); CREATININE 0.93 mg/dL (0.7-1.3)
[2019-09-08 04:14] LABS: ALKALINE PHOSPHATASE 80 U/L (45-117); BILIRUBIN,TOTAL 1.3 mg/dL (0.2-1.0); CHOL/HDL RATIO 3.7; HDL CHOL % 27 % (26-37); HDL CHOLESTEROL (DIRECT) 29 mg/dL (40-60); LDL CHOLESTEROL,CALCULATED 60 mg/dL (54-169); LDL/HDL RATIO 2.1 (0.5-3.0); TOTAL PROTEIN 7.1 g/dL (6.4-8.2); TRIGLYCERIDES 83 mg/dL (50-200); VLDL CHOLESTEROL 17 mg/dL (0-25)
[2019-09-08] MEDS: HEPARIN 5,000 UNITS/ML, 1ML IV PRN ×2 (04:19→11:39)
[2019-09-08 07:20] VITALS: BP 146/91
[2019-09-08] MEDS: FUROSEMIDE 20 MG/2 ML IV SCH ×2 (08:47→16:35)
[2019-09-08] MEDS: LISINOPRIL 10 MG TABLET PO SCH ×2 (08:47→19:38)
[2019-09-08] MEDS: ASPIRIN 81 MG TABLET EC PO SCH (08:48)
[2019-09-08] MEDS: POTASSIUM CHLORIDE 20 MEQ TAB.ER.PRT PO SCH ×2 (08:48→16:34)
[2019-09-08] MEDS: METOPROLOL TARTRATE 25 MG TAB PO SCH ×2 (08:48→19:38)
[2019-09-08] MEDS: HEPARIN 25,000 UNITS/250ML PMX 250 ML IV PRN (08:53)
[2019-09-08] MEDS: DILTIAZEM 125 MG in SODIUM CHLORIDE 0.9% 100 ML IVPB SCH (11:41)
[2019-09-08 13:20] VITALS: BP 132/83
[2019-09-08] MEDS: DILTIAZEM 60 MG TABLET PO SCH (16:34)
[2019-09-08 19:28] VITALS: BP 124/93
[2019-09-08] MEDS: NICOTINE 21 MG/24 HR PATCH.TD24 TD SCH (19:39)
[2019-09-08 21:51] VITALS: BP 99/72
[2019-09-09 00:08] VITALS: BP 107/76
[2019-09-09] MEDS: DILTIAZEM 60 MG TABLET PO SCH ×3 (00:09→11:00)
[2019-09-09] MEDS: HEPARIN 25,000 UNITS/250ML PMX 250 ML IV PRN (01:01)
[2019-09-09 05:34] VITALS: BP 109/83
[2019-09-09 07:13] LABS: BASOPHILS # (AUTO) 0.02 x10^3/uL (0-0.1); BASOPHILS % (AUTO) 0 % (0-1); EOSINOPHILS # (AUTO) 0.05 x10^3/uL (0-0.4); EOSINOPHILS % (AUTO) 1 % (1-7); LYMPHOCYTES # (AUTO) 1.83 x10^3/uL (1-3.4); LYMPHOCYTES % (AUTO) 27 % (22-44); MD NO; MEAN CORPUSCULAR HEMOGLOBIN 33.1 pg (27.5-34.5); MEAN CORPUSCULAR HGB CONC 33.6 g/dL (33.2-36.2); MEAN CORPUSCULAR VOLUME 98.6 fL (81-97); MONOCYTES # (AUTO) 0.79 x10^3/uL (0.2-0.8); MONOCYTES % (AUTO) 12 % (2-9); NEUTROPHILS # (AUTO) 4.12 x10^3/uL (1.8-6.8); NEUTROPHILS % (AUTO) 60 % (42-75); PLATELET COUNT 137 x10^3/uL (130-400); RED BLOOD COUNT 4.29 x10^6/uL (4.38-5.82); RED CELL DISTRIBUTION WIDTH 13.5 % (9.4-14.8)
[2019-09-09 07:22] LABS: ANION GAP 7 mmol/L (5-15); CALCIUM 8.6 mg/dL (8.5-10.1); CHLORIDE 103 mmol/L (98-107)
[2019-09-09 07:23] LABS: CREATININE 0.97 mg/dL (0.7-1.3)
[2019-09-09 07:58] VITALS: BP 123/86
[2019-09-09] MEDS ORDERED: LISINOPRIL 5 MG TABLET PO SCH (09:00)
[2019-09-09] MEDS: METOPROLOL TARTRATE 25 MG TAB PO SCH (09:17)
[2019-09-09] MEDS: FUROSEMIDE 20 MG/2 ML IV SCH (09:17)
[2019-09-09] MEDS: ASPIRIN 81 MG TABLET EC PO SCH (09:17)
[2019-09-09] MEDS: HEPARIN 5,000 UNITS/ML, 1ML IV PRN (09:19)
[2019-09-09] MEDS: POTASSIUM CHLORIDE 20 MEQ TAB.ER.PRT PO SCH (09:34)
[2019-09-09] MEDS ORDERED: POTA8CAP20 PO (13:17)
[2019-09-09] MEDS ORDERED: LISI5TAB7 PO (13:17)
[2019-09-09] MEDS ORDERED: FURO-93 PO (13:17)
[2019-09-09] MEDS ORDERED: DILT240C55 PO (13:17)
[2019-09-09] MEDS ORDERED: APIX5TAB PO (13:17)
[2019-09-09] MEDS ORDERED: METO25TA35 PO (13:17)
[2019-09-09] MEDS ORDERED: APIXABAN 5 MG TABLET PO SCH (13:23)
[2019-09-09 13:25] VITALS: BP 113/77
[2019-09-09] MEDS ORDERED: DILTIAZEM 240 MG CAP.ER.24H PO SCH (13:30)
[2019-09-09] MEDS ORDERED: DILTIAZEM 240 MG CAP.ER.24H ONE (13:32)
[2019-09-10] MEDS ORDERED: DILTIAZEM 240 MG CAP.ER.24H PO SCH (09:00)
== END 2019-09-09 14:25 | disposition home or self-care (01) | DRG 308 ==
LOC: ED 10:47 → EDIP 11:50 → 5SO 13:06 → DCLOUNGE 09-09 14:18
PROVIDERS: ADMIT Internal Medicine; ATTEND Internal Medicine
DX: I48.91 Unspecified atrial fibrillation (principal); I50.43 Acute on chronic combined systolic (congestive) and diastolic (congestive) heart failure; D68.69 Other thrombophilia; J98.11 Atelectasis; I11.0 Hypertensive heart disease with heart failure; E74.39 Other disorders of intestinal carbohydrate absorption; E78.5 Hyperlipidemia, unspecified; F17.210 Nicotine dependence, cigarettes, uncomplicated; G62.9 Polyneuropathy, unspecified; R73.9 Hyperglycemia, unspecified; I07.1 Rheumatic tricuspid insufficiency; I34.0 Nonrheumatic mitral (valve) insufficiency; Z80.0 Family history of malignant neoplasm of digestive organs; Z81.8 Family history of other mental and behavioral disorders; Z83.3 Family history of diabetes mellitus; Z86.73 Personal history of transient ischemic attack (TIA), and cerebral infarction without residual deficits; Z79.899 Other long term (current) drug therapy; Z79.01 Long term (current) use of anticoagulants; Z71.6 Tobacco abuse counseling
CPT/HCPCS: 36415; 71045; 71275; 80048; 80053; 80061; 83036; 83735; 83880; 84443; 84484; 85025; 85379; 85520; 85610; 93005; 93306; 96374; G0378; J1644; Q9967; J1940

== ENCOUNTER 2019-12-03 09:44 | Day surgery (SDC) | payer MEDICAID ==
[~2019-12-03] VITALS: Ht 188 cm; Wt 95.5 kg
[~2019-12-03 09:44] MED LIST changes: +APIX5TAB PO; +DILT240C55 PO; +FURO-93 PO; +LISI5TAB7 PO; +POTA8CAP20 PO
[2019-12-03] MEDS ORDERED: LISI-167 PO (10:16)
[2019-12-03] MEDS ORDERED: METO-99 PO (10:16)
[2019-12-03] MEDS ORDERED: CARV-39 PO (10:16)
[2019-12-03] MEDS ORDERED: SPIR50TA PO (10:17)
[2019-12-03 10:19] VITALS: BP 89/63
[2019-12-03 10:36] LABS: ANION GAP 7 mmol/L (5-15); CALCIUM 8.4 mg/dL (8.5-10.1); CHLORIDE 106 mmol/L (98-107); CREATININE 1.16 mg/dL (0.7-1.3)
[2019-12-03] MEDS ORDERED: PROPOFOL 10 MG/ML, 20ML ONE (11:45)
[2019-12-03] MEDS ORDERED: ACETAMINOPHEN 325 MG TABLET ONE (12:55)
== END 2019-12-03 13:31 | disposition home or self-care (01) ==
LOC: CACL 09:44
PROVIDERS: ATTEND Internal Medicine Cardiovascular Disease
DX: I48.91 Unspecified atrial fibrillation (principal); I42.6 Alcoholic cardiomyopathy; I10 Essential (primary) hypertension; F17.210 Nicotine dependence, cigarettes, uncomplicated; E66.3 Overweight; Z68.27 Body mass index [BMI] 27.0-27.9, adult; Z79.01 Long term (current) use of anticoagulants; Z79.899 Other long term (current) drug therapy
CPT/HCPCS: 36415; 80048; 92960; J2704

== ENCOUNTER 2020-07-06 08:05 | Emergency (ER) | payer MEDICAID ==
[~2020-07-06] VITALS: Ht 188 cm; Wt 90.0 kg
[~2020-07-06 08:05] MED LIST changes: +CARV-39 PO; +METO-99 PO; -NICO-487 TD; +NICO-587 TD; +SPIR50TA PO
--- NOTE | 2020-07-06 08:42 | NUR ---
Pt c/o diabetic wound to posterior left foot X 6 months. Pt states worsening neuropathy over the last week. Wound care will no longer see pt.
[2020-07-06 09:55] LABS: BASOPHILS % (AUTO) 1 % (0-1); EOSINOPHILS % (AUTO) 2 % (1-7); LYMPHOCYTES % (AUTO) 17 % (22-44); MEAN CORPUSCULAR HEMOGLOBIN 33.8 pg (27.5-34.5); MEAN CORPUSCULAR HGB CONC 35.3 g/dL (33.2-36.2); MEAN PLATELET VOLUME 6.8 fL (7.4-10.4); MONOCYTES % (AUTO) 15 % (2-9); NEUTROPHILS % (AUTO) 66 % (42-75); PLATELET COUNT 252 x10^3/uL (130-400); RED BLOOD COUNT 4.27 x10^6/uL (4.38-5.82); RED CELL DISTRIBUTION WIDTH 12.6 % (9.4-14.8)
[2020-07-06 09:57] LABS: MD NO
--- NOTE | 2020-07-06 10:01 | NUR ---
Pt sleeping, awaiting results.
[2020-07-06 10:02] LABS: HCT (SEDRATE) 40.8 % (39.2-51.8)
[2020-07-06 10:04] LABS: ANION GAP 6 mmol/L (5-15); C-REACTIVE PROTEIN, QUANT 0.41 mg/dL (0.02-0.49); CALCIUM 9.1 mg/dL (8.5-10.1); CHLORIDE 101 mmol/L (98-107); CREATININE 0.95 mg/dL (0.7-1.3)
--- NOTE | 2020-07-06 11:08 | NUR ---
Pt resting, no needs at this time.
[2020-07-06] MEDS ORDERED: SULFAMETH./TRIMETHOPRIM DS 800MG/160MG TABLET PO ONE (12:30)
[2020-07-06] MEDS ORDERED: CEPHALEXIN 500 MG CAPSULE PO ONE (12:30)
[2020-07-06] MEDS ORDERED: CEPHALEXIN 500 MG CAPSULE ONE (12:38)
[2020-07-06] MEDS ORDERED: SULFAMETH./TRIMETHOPRIM DS 800MG/160MG TABLET ONE (12:38)
[2020-07-06 12:49] VITALS: BP 148/79
== END 2020-07-06 12:52 | disposition home or self-care (01) ==
LOC: ED 10:14
DX: L03.116 Cellulitis of left lower limb (principal); F17.210 Nicotine dependence, cigarettes, uncomplicated; I10 Essential (primary) hypertension; E11.9 Type 2 diabetes mellitus without complications; Z86.73 Personal history of transient ischemic attack (TIA), and cerebral infarction without residual deficits
CPT/HCPCS: 36415; 80048; 85025; 85651; 86140; 99284; 99406

== ENCOUNTER 2020-10-27 16:15 | Emergency (ER) | payer MEDICAID ==
[~2020-10-27] VITALS: Ht 188 cm; Wt 94.9 kg
--- NOTE | 2020-10-27 16:46 | NUR ---
PT STATES HE WAS TAKING OUT THE TRASH AND ON HIS WAY HE STEPPED ON A NAIL ON HIS RIGHT FOOT AROUND THE TOE WHICH HAS ALREADY BEEN AMPUTATED. HISTORY OF DM, PAST INFECTIONS IN FOOT WELL.
[2020-10-27] MEDS ORDERED: DIPH,PERTUSS(ACELL),TET VAC/PF 0.5 ML IM-VACC ONE ×2 (18:00→18:07)
[2020-10-27] MEDS ORDERED: NEOSPORIN OINT. PKT 1 PACKET ONE (18:00)
[2020-10-27 18:23] VITALS: BP 142/88
== END 2020-10-27 18:33 | disposition home or self-care (01) ==
LOC: ED 17:49
DX: S91.331A Puncture wound without foreign body, right foot, initial encounter (principal); I10 Essential (primary) hypertension; E11.9 Type 2 diabetes mellitus without complications; X58.XXXA Exposure to other specified factors, initial encounter; Y93.89 Activity, other specified; Y92.89 Other specified places as the place of occurrence of the external cause; Y99.8 Other external cause status
CPT/HCPCS: 90471; 90715; 99283